=== PATIENT | male | born 1950 | race Caucasian/White ===

== ENCOUNTER 2017-11-03 07:59 | Day surgery (SDC) | payer MEDICARE, OTHER ==
[~2017-11-03] VITALS: Ht 182.9 cm; Wt 104.9 kg
[~2017-11-03 07:59] MED LIST: AMLO10TA2 PO; GLUC-146 PO; HYDR-3240 PO; M-171CAP PO; METO-93 PO; METO25TA91 PO; TESTRON PO
[2017-11-03] MEDS ORDERED: LACTATED RINGERS 1,000 ML IV SCH (08:48)
[2017-11-03 08:52] VITALS: BP 157/81
[2017-11-03] MEDS ORDERED: MIDAZOLAM 1 MG/ML, 2ML ONE (09:50)
[2017-11-03] MEDS ORDERED: FENTANYL PF 250 MCG/5ML ONE (09:50)
[2017-11-03] MEDS ORDERED: THROMBIN 5,000 UNIT VIAL TP ONE (10:26)
[2017-11-03] MEDS ORDERED: BUPIVACAINE/PF 0.5% ONE (10:26)
[2017-11-03] MEDS ORDERED: BUPIVACAINE 0.25% ONE (10:26)
[2017-11-03] MEDS ORDERED: EPINEPHRINE 1 MG/ML, 1ML ONE (10:26)
[2017-11-03] MEDS ORDERED: BACITRACIN 50,000 UNIT ONE (10:27)
[2017-11-03] MEDS ORDERED: FENTANYL PF 100 MCG/2ML ONE (11:24)
[2017-11-03] MEDS ORDERED: OXYcodone 5 MG/5 ML ORAL.SOL UDC PO PRN (11:30)
[2017-11-03] MEDS ORDERED: FENTANYL PF 100 MCG/2ML IV PRN (11:30)
[2017-11-03] MEDS ORDERED: hydrALAzine 20 MG/ML, 1ML IV PRN (11:30)
[2017-11-03] MEDS ORDERED: PROMETHAZINE 25 MG/ML, 1ML IV PRN (11:30)
[2017-11-03] MEDS ORDERED: ACETAMINOPHEN 325 MG TABLET PO PRN (11:30)
[2017-11-03] MEDS ORDERED: ALBUTEROL SULFATE 2.5 MG/3 ML NPPB PRN (11:30)
[2017-11-03] MEDS ORDERED: LABETALOL 5MG/ML, 20ML IV PRN (11:30)
[2017-11-03] MEDS ORDERED: MEPERIDINE/PF 25MG/0.5ML IVPush PRN (11:30)
[2017-11-03] MEDS ORDERED: LORazepam 2 MG/ML, 1ML IVPush PRN (11:30)
[2017-11-03] MEDS ORDERED: BUPIVACAINE LIPOSOME/PF INFIL ONE ×2 (11:45→12:00)
[2017-11-03] MEDS ORDERED: BUPIVACAINE/PF 0.25% EPIDPUSH ONE (11:54)
[2017-11-03] MEDS ORDERED: FENTANYL PF 100 MCG/2ML EPIDPUSH ONE (11:55)
[2017-11-03] MEDS ORDERED: ROCURONIUM 10 MG/ML,10ML ONE (12:11)
[2017-11-03] MEDS ORDERED: SUCCINYLCHOLINE 20 MG/ML, 10ML ONE (12:11)
[2017-11-03] MEDS ORDERED: CEFAZOLIN 1,000 MG ONE (12:11)
[2017-11-03] MEDS ORDERED: DEXAMETHASONE 4 MG/ML, 1ML ONE (12:11)
[2017-11-03] MEDS ORDERED: GLYCOPYRROLATE 0.2MG/1ML, 5ML ONE (12:11)
[2017-11-03] MEDS ORDERED: NEOSTIGMINE 1 MG/ML, 10ML ONE (12:11)
[2017-11-03] MEDS ORDERED: ONDANSETRON 2MG/ML, 2ML ONE (12:11)
[2017-11-03] MEDS ORDERED: PROPOFOL 10 MG/ML, 20ML ONE (12:11)
[2017-11-03] MEDS ORDERED: OXYcodone 5 MG/5 ML ORAL.SOL UDC ONE (12:51)
[2017-11-03] MEDS ORDERED: ACETAMINOPHEN 650 MG/20.3 ML UDC ONE (12:52)
[2017-11-03] MEDS ORDERED: ACETAMINOPHEN 325 MG TABLET ONE (12:52)
[2017-11-03] MEDS ORDERED: HYDROmorphone 2 MG/ML, 1ML ONE (13:02)
[2017-11-03] MEDS: HYDROmorphone 1 MG/ML, 1ML IV PRN ×3 (13:05→13:30)
[2017-11-03] MEDS ORDERED: hydrALAzine 20 MG/ML, 1ML ONE (13:14)
== END 2017-11-03 16:55 ==
LOC: OUT 07:59
PROVIDERS: ATTEND Neurological Surgery
DX: M51.16 Intervertebral disc disorders with radiculopathy, lumbar region (principal); M48.061 Spinal stenosis, lumbar region without neurogenic claudication; I10 Essential (primary) hypertension; Z72.89 Other problems related to lifestyle; Z88.0 Allergy status to penicillin
CPT/HCPCS: 63030; 63035; 63056; C1729; C9290; J0171; J0330; J0360; J0690; J1100; J1170; J2250; J2405; J2704; J3010; J3490; J7120; J2710